=== PATIENT | male | born 1945 | race Caucasian/White ===

== ENCOUNTER → 2021-12-26 16:14 | Outpatient (CLI) | payer MEDICARE, OTHER, SELFPAY ==
--- NOTE | 2021-12-26 16:19 | DI.RAD.S_ITS ---
PROCEDURE: XR CHEST 2V INDICATIONS: Acute cough TECHNIQUE: 2 views of the chest were acquired. COMPARISON: None. FINDINGS: Surgical changes and devices: None. Lungs and pleura: Mild opacity at the right lung base. No pleural effusion or pneumothorax. Probable superimposed atelectasis at lung bases. Mediastinum: Normal heart size. Bones and chest wall: No suspicious bony abnormalities. Soft tissues appear unremarkable. IMPRESSION: Mild opacity at the right lung base could represent developing infectious or inflammatory airspace disease. Probable superimposed atelectasis. Consider future imaging surveillance to assess for resolution. Dictated by: Sanket Watson M.D. on 12/26/2021 at 16:55 Approved by: Sanket Watson M.D. on 12/26/2021 at 16:56
== END ==
PROVIDERS: Family Provider Family Medicine; PCP Family Medicine; Referring Provider Family Medicine; Visit Provider Family Medicine
DX: R05.1 Acute cough (principal)
CPT/HCPCS: 71046

== ENCOUNTER → 2022-01-23 16:43 | Outpatient (CLI) | payer MEDICARE, OTHER, SELFPAY ==
--- NOTE | 2022-01-23 16:45 | DI.RAD.S_ITS ---
PROCEDURE: XR CHEST 2V INDICATIONS: R91.8 TECHNIQUE: 2 views of the chest were acquired. COMPARISON: [facility], , XR CHEST 2V, 12/26/2021, 16:23. FINDINGS: Surgical changes and devices: None. Lungs and pleura: Lungs are clear. No pleural effusions or pneumothorax. Mediastinum: Mediastinal contours are normal. Heart size is normal. Bones and chest wall: No suspicious bony abnormalities. Soft tissues appear unremarkable. IMPRESSION: No acute cardiopulmonary findings. Dictated by: Genny Pérez M.D. on 01/23/2022 at 17:15 Approved by: Genny Pérez M.D. on 01/23/2022 at 17:15
== END ==
PROVIDERS: Family Provider Family Medicine; PCP Family Medicine; Referring Provider Family Medicine; Visit Provider Family Medicine
DX: R91.8 Other nonspecific abnormal finding of lung field (principal)
CPT/HCPCS: 71046

== ENCOUNTER → 2022-06-30 15:55 | Outpatient (CLI) | payer MEDICARE, OTHER, SELFPAY ==
--- NOTE | 2022-06-30 16:00 | DI.RAD.S_ITS ---
PROCEDURE: XR KNEE RT 3V INDICATIONS: RIGHT KNEE PAIN TECHNIQUE: 3 views of the knee were acquired. COMPARISON: None. FINDINGS: Bones: No fractures or dislocations. No suspicious bony lesions. Mild medial and lateral compartmental joint space narrowing Soft tissues: Small joint effusion. No suspicious soft tissue calcifications. IMPRESSION: Mild arthritic changes without fracture or Approved by: Jovany Alvarado M.D. on 06/30/2022 at 16:52
== END ==
PROVIDERS: Family Provider Family Medicine; PCP Family Medicine; Referring Provider Family Medicine; Visit Provider Family Medicine
DX: M25.561 Pain in right knee (principal); M25.461 Effusion, right knee
CPT/HCPCS: 73562

== ENCOUNTER → 2022-07-11 07:44 | Outpatient (CLI) | payer MEDICARE, OTHER, SELFPAY ==
--- NOTE | 2022-07-12 10:58 | DI.NM.S_ITS ---
DATE OF SERVICE: 07/11/2022 PROCEDURE PERFORMED: Exercise treadmill stress test without imaging. ORDERING PROVIDER: Valerio Cervantes MD INDICATIONS: The patient is a 76-year-old male with atypical chest discomfort. FINDINGS: 1. The patient was able to exercise for 9 minutes on a standard Osman protocol suggesting excellent exercise capacity with an ANKIT of -33%, achieving 9.7 METS. 2. He had a normal heart rate and blood pressure response to exercise, achieving a maximum heart rate of 123 BPM (86% of his predicted maximum). 3. He had no chest discomfort or anginal symptoms. 4. His resting ECG shows slow sinus arrhythmia with an occasional PAC but relatively normal ST segments. With stress, while there is significant motion artifact, there are no obvious significant ST-segment shifts or arrhythmias. IMPRESSION: 1. Normal exercise treadmill stress test for ischemia. 2. Excellent exercise capacity without any angina or arrhythmias. [facility] - RACHEL/reginaldo/steven doc#: [id number]/job#: [id number] dd: 07/11/2022 17:56:00 dt: 07/12/2022 01:36:00 DICTATING MD/COPIES TO: Valerio Keating MD; Valerio Cervantes MD COPIES MNE: LU;
== END ==
PROVIDERS: Family Provider Family Medicine; PCP Family Medicine; Referring Provider Family Medicine; Visit Provider Family Medicine
DX: R07.89 Other chest pain (principal)
CPT/HCPCS: 93017